=== PATIENT | female | born 1980 | race African-American/Black ===

== ENCOUNTER 2024-12-25 08:35 | Outpatient (CLI) | payer OTHER | END 2024-12-25 08:36 | disposition home or self-care (01) | LOC: CSHULT 08:35 | PROVIDERS: ATTEND Family Medicine | DX: R22.32 Localized swelling, mass and lump, left upper limb (principal) | CPT/HCPCS: 76999 ==

== ENCOUNTER 2024-12-26 10:47 | Outpatient (CLI) | payer OTHER | END 2024-12-26 10:48 | disposition home or self-care (01) | LOC: CSHMAMMO 10:47 | PROVIDERS: ATTEND Family Medicine | DX: Z12.31 Encounter for screening mammogram for malignant neoplasm of breast (principal) | CPT/HCPCS: 77063; 77067 ==